=== PATIENT | female | born 1950 | race Caucasian/White ===

== ENCOUNTER → 2020-01-22 15:01 | Outpatient (CLI) | payer OTHER, SELFPAY ==
[2020-01-25 07:40] LABS: COVID19 Sendout Not Detected (Not Detect)
== END ==
PROVIDERS: Visit Provider Physician Assistant
DX: Z11.59 Encounter for screening for other viral diseases (principal)
CPT/HCPCS: 87635

== ENCOUNTER 2020-01-25 13:55 | Day surgery (SDC) | payer OTHER, SELFPAY ==
[2020-01-25] VITALS (9 sets, daily range): BP systolic 98–139; BP diastolic 60–76; PULSE 52–85; RESP 12–21; TEMP 36.1–36.8; O2SAT 99–100; BMI 12.9
--- NOTE | 2020-01-25 | DI.RAD.S_ITS ---
PROCEDURE: XR LUMBAR SPINE 2-3V INDICATIONS: SPINE SURGER TECHNIQUE: To views of the lumbar spine were acquired. COMPARISON: None. FINDINGS: Intraoperative localizer at the level of the L5-S1 disc. IMPRESSION: Localizer level L5-S1 disc. Dictated by: Mckenna Syed MD, PhD on 01/26/2020 at 16:58 Approved by: Mckenna Syed MD, PhD on 01/26/2020 at 16:58
[2020-01-25] MEDS: LACTATED RINGERS 1,000 ML 42 ML IV (14:37)
--- NOTE | 2020-01-25 14:46 | SUR.PREOP ---
Patient's blood sugar 66. Notified anesthesiology. Waiting for orders. Patient denies symptoms.
[2020-01-25] MEDS: DEXTROSE 5%-LACTATED RINGERS 1,000 ML 100 ML IV (14:56)
--- NOTE | 2020-01-25 15:33 | PM.PREOP ---
Pre-operative Note COVID-19 COVID-19 status: Negative Result date/Date tested (Pos, Neg/Pending): 01/23/20 Interval Note History & Physical reviewed/Exam performed by Physician: Yes Changes to H&P: No
[2020-01-25] MEDS: GABAPENTIN 100 MG CAPSULE PO (15:43)
[2020-01-25] MEDS: CLINDAMYCIN 600 MG/50 ML PIGGYBACK 50 MG IV ×2 (16:05→16:42)
--- NOTE | 2020-01-25 16:34 | SUR.OPER ---
Prone on spine table, head in foam head support, padded chest and pelvic supports, gel pad at knees, lower legs supported by pillows; nipples, genitalia and toes free of pressure, arms secured on foam padded arm boards at <90 degrees abduction. Tape over blanket at thigh secured to table.
[2020-01-25] MEDS: BUPIVACAINE 0.25% W/ EPI (PF) 10 ML VIAL 20 ML INJ (16:43)
[2020-01-25] MEDS: methylPREDNISolone acet DEPO 40 MG/ML VIAL INJ (16:47)
--- NOTE | 2020-01-25 17:32 | PM.OP.1 ---
Operative Date/Time/Diagnoses Date of procedure: 01/25/20 Time of procedure: 16:05 Pre-op diagnosis: 1. L4-5, L5-S1 spinal stenosis 2. L4-5, L5-S1 spondylosis with radiculopathy Post-op diagnosis: same Procedure & Clinicians Procedure: 1. L5-S1 laminectomy with partial facetecomies 2. L4-5 right hemilaminectomy 3. Utilization of microsurgical technique and operating microscope Same procedure as scheduled: Yes Indications: Patient has been having chronic back pain and worsening lumbar radiculopathy. Patient failed multiple conservative management with worsening pain weakness and numbness in her lower extremity. Patient has been having difficulty performing activity of daily living. After discussing risks benefits of treatment options, patient elected proceed with surgery. Surgeon: Henrry Hardy Highway Commissioner: Mima Balbuena Click Yes if Unassisted: No Anesthesia Type: General Operative Notes Closure Type: primary Specimen(s): none sent Estimated Blood Loss (mL): 10 Blood products transfused: none Procedure in detail: Patient was seen in the preoperative area. Risks and benefits of the surgery was discussed with the patient. Informed consent was obtained from the patient and placed in the chart. Surgical site was marked. Patient was taken to the operative room. General anesthesia was administered. Prophylactic antibiotic was given to the patient less than 30 min before the incision was made. Patient was placed into a prone position on the Alfredo table. Patient's back was then prepped and draped in the sterile fashion. Time-out was performed at this time. Using AP and lateral C-arm imaging the interval between L4-5 L5-S1 was identified and marked on patient's back. A 1 inch incision 1 in from midline was made on the right side. The fascia was incised in line with skin incision. Globus MARS retractors was placed inside the incision and docked onto the L5 lamina. Using microsurgical technique and operating microscope, a L5 laminectomy was performed using a Kerrison rongeur. Liagamentum flavum was resected at the site of the laminotomy. Either side of the dura was exposed. Bilateral partial facetcomies was performed to further decompress the lateral recess. After the laminectomy was completed, the area medial lateral superior and inferior to the area of the laminectomy was inspected and explored using a micro curette. No other impinging structure was identified. The mars retractor was redirected over the L4-5 interval. Using microsurgical technique and operative microscope a hemilaminectomy was performed at L4-5 level on the right. Kerrison rongeur a micro curette was used to free up the ligamentum flavum which was resected during the process of a hemilaminectomy for the further decompressing the epidural space and lateral recess. The wound was then irrigated with sterile normal saline. 40 mg Depo-Medrol was placed into the epidural space. The deep fascia was closed with 1-0 Vicryl. The subcutaneous tissue was closed with 2-0 Vicryl. The skin was closed with 4-0 Monocryl. Patient tolerated the procedure well. There were no complications. Patient was transferred recovery room in stable condition. Complications: none Post-operative Condition: stable Disposition: same day surgery Plan for aftercare: Discharge to home
[2020-01-25] MEDS: OXYCODONE IR 5 MG TABLET PO (17:46)
--- NOTE | 2020-01-25 19:11 | SUR.PHASEII ---
1829-Report from [facility]. Pt resting comfortably in bed sitting up drinking po fluids and eating applesauce, denies pain or nausea and wanting to try go home. Assisted up to standing position then ambulating by self and gait steady. Assisted to get dressed and to br voiding well
--- NOTE | 2020-01-25 19:15 | SUR.PHASEII ---
0-All of pts questions answered and pt verbalizes understanding of discharge instructions, states has rx, DCD in stable condition via wc to in private vehicle
== END 2020-01-25 19:00 | disposition home or self-care (01) ==
PROVIDERS: PCP Family Medicine; Referring Provider Family Medicine; Visit Provider Orthopaedic Surgery Orthopaedic Surgery of the Spine
PROC: (CPT 63047; principal; 2020-01-25 15:15)
DX: M48.061 Spinal stenosis, lumbar region without neurogenic claudication (principal); M47.26 Other spondylosis with radiculopathy, lumbar region
CPT/HCPCS: 63047; 63030; 72100; 76000; J1030; J1100; J2250; J2405; J2704; J3010; J7121